=== PATIENT | male | born 1985 | race Caucasian/White ===

== ENCOUNTER 2017-08-19 13:18 | Emergency (ER) | payer OTHER ==
[~2017-08-19] VITALS: Ht 177.8 cm; Wt 77.1 kg
--- NOTE | ~2017-08-19 | EKG ---
[place] [address] [facility] [place] [address] ELECTROCARDIOGRAM REPORT Name: GRECIA MARTINES Room #: REG Gregory#: [id number] Admission: 08/19/17 Attend Phys: Discharge: Date of : 89 Report #: [id number] THIS REPORT FOR: //name// [facility] ED Test Date: 2017-08-19 Test Time: 13:20:27 Pat Name: GRECIA MARTINES Department: Room: Gender: Fan Balancer: Pavel GRAYSON : 1985 Requested By: Larry Odell Order Number: [id number] MD: César Johns Measurements Intervals [place] Rate: 90 P: 54 NE: 131 QRS: 60 QRSD: 76 T: 16 QT: 348 QTc: 426 Interpretive Statements Sinus rhythm Normal tracing No previous ECG available for comparison Electronically Signed On 08-19-2017 14:13:16 CDT by César Johns [email or web address] <ELECTRONICALLY SIGNED> By: César Johns MD, [facility] 08/19/17 1413 1320 1320 César Johns MD, FACC /EPI
[2017-08-19 14:08] LABS: HEMATOCRIT 44.3 % (42.0-52.0); HEMOGLOBIN 16.2 gm/dL (14.0-18.0); MCH 31.9 pg (26.0-34.0); MCHC 36.6 g/dL (28.0-37.0); MCV 87.1 fL (80.0-100.0); PLATELET COUNT 228 thou/uL (150-400); RBC 5.08 mil/uL (4.50-6.00); RDW 13.5 % (10.5-14.5); WBC 5.4 thou/uL (4.0-11.0)
[2017-08-19 14:22] LABS: ANION GAP 6 mmol/L (7-16); BUN 12 mg/dL (7-18); CALCIUM 8.9 mg/dL (8.5-10.1); CHLORIDE 104 mmol/L (98-107); CO2 29 mmol/L (21-32); GLUCOSE 99 mg/dL (74-106); POTASSIUM 3.5 mmol/L (3.5-5.1); SODIUM 139 mmol/L (136-145)
[2017-08-19 14:31] LABS: TROPONIN-I <0.06 ng/mL (<0.06)
[2017-08-19 15:02] LABS: ABSOLUTE NEUTROPHILS 3.2 thou/uL (1.4-8.2)
[2017-08-19] MEDS ORDERED: MOBIC15 MG PO (15:14)
[2017-08-19 15:29] VITALS: BP 128/77
== END 2017-08-19 15:32 | disposition home or self-care (01) ==
LOC: ER 13:18
PROVIDERS: Physician Assistant
DX: R07.9 Chest pain, unspecified (principal)